=== PATIENT | male | born 1990 | race Caucasian/White ===

== ENCOUNTER 2023-09-17 17:43 | Emergency (ER) | payer OTHER, SELFPAY ==
--- NOTE | ~2023-09-17 | CT_ITS ---
EXAMINATION: CT abdomen pelvis w con DATE: 09/17/2023 19:16 INDICATION: Right lower quadrant abdominal pain. TECHNIQUE: Computed tomography (CT) of the abdomen and pelvis was performed with 100 mL Omnipaque 350 intravenous contrast. Automated exposure control and iterative reconstruction technique were employe d. The dose-length product was 504.05 mGy-cm. COMPARISON: None. FINDINGS: The visualized portions of the lung bases demonstrate mild atelectasis. No pleural effusion . The heart size is normal. No pericardial effusion. There is a 6 mm cyst in the liver. The gallbladd er, spleen, pancreas, adrenal glands, and left kidney are normal. There is a delayed right-sided cont rast nephrogram. There is mild right hydronephrosis and hydroureter. There is a 2 mm stone at right u reterovesicular junction. There are no dilated loops of bowel. There is a left inguinal hernia contai lanny fat. The appendix is normal. There are no pathologically enlarged lymph nodes. There is no free intraperitoneal fluid. There is mild lumbar spondylosis. IMPRESSION: 1. 2 mm stone at right ureterovesicular junction with mild right hydronephrosis and hydroureter. Reviewed, dictated and finalized at location [facility]
[2023-09-17 17:47] VITALS: BP 137/75; PULSE 69; RESP 20; TEMP 36.6; O2SAT 100
[2023-09-17 18:02] LABS: Basophils Percent Auto 0.5 % (0.2-1.2); Eosinophils Absolute Auto 0.1 K/mm3 (0-0.3); Eosinophils Percent Auto 1.2 % (0-4.4); Hematocrit 43.9 % (42.0-52.0); Hemoglobin 14.8 g/dL (14.0-18.0); Immature Granulocyte Absolute 0.02 K/mm3 (0.00-0.031); Immature Granulocyte Percent A 0.3 % (0-0.5); Lymphocytes Absolute Auto 1.77 K/mm3 (0.9-3.2); Lymphocytes Percent Auto 26.7 % (18.3-44.2); Mean Corpuscular HGB Conc 33.7 g/dl (32-36); Mean Corpuscular Hemoglobin 29.5 pg (26-34); Mean Corpuscular Volume 87.5 fl (80-100); Mean Platelet Volume 9.8 fl (7.4-10.4); Monocytes Absolute Auto 0.6 K/mm3 (0.1-0.6); Monocytes Percent Auto 9.2 % (2.6-8.5); Neutrophils Absolute Auto 4.1 K/mm3 (1.3-6.7); Neutrophils Percent Auto 62.1 % (45.5-73.1); Platelet Count Result 300 k/mm3 (150-375); Red Blood Count 5.02 M/mm3 (4.6-6.20); Red Cell Distribution Width 12.8 % (11.5-14.5); White Blood Count 6.6 K/mm3 (4.5-10.0)
[2023-09-17 18:10] LABS: Alanine Aminotransferase 29 U/L (6-50); Albumin Level 4.5 g/dL (3.5-5.1); Alkaline Phosphatase 83 U/L (38-126); Anion Gap 12 mmol/L (8-16); Aspartate Amino Transferase 28 U/L (17-59); Bilirubin,Total 0.9 mg/dL (0.2-1.3); Blood Urea Nitrogen 15 mg/dL (9-20); Calcium 9.7 mg/dL (8.4-10.2); Carbon Dioxide 25 mmol/L (22-30); Chloride 101 mmol/L (98-107); Estimated CRCL calculation 79 ml/min; Estimated Glomerular Filt Rate > 60; Glucose 106 mg/dL (65-110); Lipase 56 U/L (23-300); Potassium 3.8 mmol/L (3.4-5.0); Sodium 138 mmol/L (137-145)
--- NOTE | 2023-09-17 18:11 | ED.GENADULT ---
HPI - General Adult General Chief complaint: Abdominal Pain Stated complaint: right sided abd pain Time Seen by Provider: 09/17/23 18:11 Focused HPI: This is a 32-year-old male who presents to the ED with chief complaint of severe right lower quadrant pain began around 3:00 pm. today. Reports there is some pain in the right flank as well. endorses nausea. denies Vomiting, chest pain, shortness of breath, urinary symptoms. GENERAL: Pacing around the room in pain. HEAD: Normocephalic, atraumatic. CHEST: Clear to auscultation. No respiratory distress. HEART: Regular rate and rhythm. NEURO: Alert and oriented x3. Patient screened in triage and initial orders placed. Additional care and disposition to be based upon diagnostic testing and treatment. Related Data Home Medications Medication Instructions Recorded Confirmed trazodone 100 mg tablet mg 09/17/23 Allergies Allergy/AdvReac Type Severity Reaction Status Date / Time No Known Allergies Allergy Verified 09/17/23 18:15 Course Vital Signs Vital signs: Vital Signs Temperature 97.8 F 09/17/23 17:47 Pulse Rate 69 09/17/23 17:47 Respiratory Rate 20 09/17/23 17:47 Blood Pressure 137/75 09/17/23 17:47 Pulse Oximetry 100 09/17/23 17:47 Temperature 97.8 F 09/17/23 17:47 Pulse Rate 65 09/17/23 22:50 Respiratory Rate 14 09/17/23 22:50 Blood Pressure 122/66 09/17/23 22:50 Pulse Oximetry 100 09/17/23 22:50 Medical Decision Making MDM Narrative Medical decision making narrative: Medical screening exam performed by advanced practice provider in triage. Patient's care was continued by another provider in the emergency department. a separate note was written in the EMR for this visit. Vital Signs Vital Signs: Vital Signs Temperature 97.8 F 09/17/23 17:47 Pulse Rate 69 09/17/23 17:47 Respiratory Rate 20 09/17/23 17:47 Blood Pressure 137/75 09/17/23 17:47 Pulse Oximetry 100 09/17/23 17:47 Temperature 97.8 F 09/17/23 17:47 Pulse Rate 65 09/17/23 22:50 Respiratory Rate 14 09/17/23 22:50 Blood Pressure 122/66 01/16/24 22:50 Pulse Oximetry 100 09/17/23 22:50 Lab Data 09/17/23 17:53 09/17/23 17:53 Labs: Lab Results 09/17/23 09/17/23 Range/Units 17:53 21:05 WBC 6.6 (4.5-10.0) K/mm3 RBC 5.02 (4.6-6.20) M/mm3 Hgb 14.8 (14.0-18.0) g/dL Hct 43.9 (42.0-52.0) % MCV 87.5 (80-100) fl MCH 29.5 (26-34) pg MCHC 33.7 (32-36) g/dl RDW 12.8 (11.5-14.5) % Plt Count 300 (150-375) k/mm3 MPV 9.8 (7.4-10.4) fl Immature Gran % (Auto) 0.3 (0-0.5) % Neut % (Auto) 62.1 (45.5-73.1) % Lymph % (Auto) 26.7 (18.3-44.2) % [place] % (Auto) 9.2 H (2.6-8.5) % Eos % (Auto) 1.2 (0-4.4) % Baso % (Auto) 0.5 (0.2-1.2) % Lymph # (Auto) 1.77 (0.9-3.2) K/mm3 [place] # (Auto) 0.6 (0.1-0.6) K/mm3 Eos # (Auto) 0.1 (0-0.3) K/mm3 Baso # (Auto) 0.0 (0.0-0.1) K/mm3 Abs Immat Gran (auto) 0.02 (0.00-0.031) K/mm3 Absolute Neuts (auto) 4.1 (1.3-6.7) K/mm3 Absolute Nucleated RBC 0.0 (0.0-0.012) K/mm3 Nucleated RBC % 0.0 (0.0-0.2) % Sodium 138 (137-145) mmol/L Potassium 3.8 (3.4-5.0) mmol/L Chloride 101 (98-107) mmol/L Carbon Dioxide 25 (22-30) mmol/L Anion Gap 12 (8-16) mmol/L BUN 15 (9-20) mg/dL Creatinine 1.20 (0.7-1.3) mg/dL Estim Creat Clear Calc 79 ml/min Estimated GFR > 60 (59 - ) Glucose 106 (65-110) mg/dL Calcium 9.7 (8.4-10.2) mg/dL Total Bilirubin 0.9 (0.2-1.3) mg/dL AST 28 (17-59) U/L ALT 29 (6-50) U/L Alkaline Phosphatase 83 (38-126) U/L Total Protein 7.0 (6.3-8.2) g/dL Albumin 4.5 (3.5-5.1) g/dL Lipase 56 (23-300) U/L Urine Color Yellow (Yellow) Urine Appearance Clear (Clear) Urine pH 5.0 (5.0-9.0) Ur Specific [place] 1.077 H (1.001-1.035) Urine Protein Negative (Negative) mg/dL Ur
[2023-09-17] MEDS: ONDANSETRON INJ 4 MG/2 ML VIAL IV PUSH ×2 (18:16→18:57)
[2023-09-17] MEDS: SODIUM CHLORIDE 0.9% IV 1,000 ML 999 ML IV CONT ×2 (18:57→20:31)
[2023-09-17] MEDS: HYDROmorphone HCL INJ (*CRX) 1 MG/ML SYR IV PUSH (18:58)
--- NOTE | 2023-09-17 19:30 | ED.ABDPAIN ---
HPI - Abdominal Pain General Chief Complaint: Abdominal Pain Stated Complaint: right sided abd pain Time Seen by Provider: 09/17/23 18:11 Source: patient Mode of arrival: ambulatory Limitations: no limitations History of Present Illness HPI narrative: Patient is a 32-year-old male who presents ED with report of right lower quadrant abdominal pain. Patient reports pain began suddenly around 3:00 p.m. today and has been constant and persistent since then. States pain has been mostly in right lower abdomen, does report some mild pain in his right lower back. Reports nausea and vomiting. Denies diarrhea, constipation, fevers. States he has not urinated much today, but dysuria or hematuria. Denies previous history of kidney stones. Related Data Home Medications Medication Instructions Recorded Confirmed trazodone 100 mg tablet mg 09/17/23 Allergies Allergy/AdvReac Type Severity Reaction Status Date / Time No Known Allergies Allergy Verified 09/17/23 18:15 Review of Systems Review of Systems: CONSTITUTIONAL: Denies fever, chills, or sweats. GASTROINTESTINAL: See HPI. GENITOURINARY: See HPI. MUSCULOSKELETAL: See HPI. All systems reviewed & are unremarkable except as noted in HPI and below Exam Narrative: GENERAL: Uncomfortable appearing, in mild acute distress due to pain. Pacing around ED room. HEAD: Normocephalic, atraumatic. RESPIRATORY: Airway patent, respirations nonlabored. Clear to auscultation bilaterally, no rales, rhonchi, wheezing. CARDIOVASCULAR: Regular rate and rhythm ABDOMINAL: Soft, tenderness in right lower quadrant, nondistended. Normoactive BS. Positive CVA tenderness on right. MUSCULOSKELETAL: Moves all extremities. No gross deformities. SKIN: Warm, dry, normal color. NEURO: A&O X3. Speech clear. Cranial nerves II-XII grossly intact. Steady gait. No ataxic movements. PSYCHIATRIC: Anxious. Normal interaction. Course Vital Signs Vital signs: Vital Signs Temperature 97.8 F 09/17/23 17:47 Pulse Rate 69 09/17/23 17:47 Respiratory Rate 20 09/17/23 17:47 Blood Pressure 137/75 09/17/23 17:47 Pulse Oximetry 100 09/17/23 17:47 Temperature 97.8 F 09/17/23 17:47 Pulse Rate 65 09/17/23 22:50 Respiratory Rate 14 09/17/23 22:50 Blood Pressure 122/66 09/17/23 22:50 Pulse Oximetry 100 09/17/23 22:50 MDM - Abdominal Pain MDM Narrative Medical decision making narrative: Patient presented to ED with sudden onset of RLQ abdominal pain onset today. Associated with nausea and vomiting. Patient very uncomfortable appearing, pacing around ED room. Vital stable. Laboratory studies unremarkable. Creatinine 1.2, no records to compare to. UA with ketones, no evidence for infection. CT abdomen pelvis obtained showing 2 mm right UVJ stone. Consistent with exam and patient presentation. Patient updated on lab and imaging findings. He is feeling better with supportive therapy. Able to tolerate p.o. intake. Pain significantly improved. Feels comfortable with discharge home. Discussed further management of stone, will send home with pain and nausea medicine, in addition to Flomax. Advised follow-up with urology for further evaluation, given strict return precautions. Patient agreeable with plan. Discharged in stable condition. Medical Records Attestation: I reviewed the patient's medical records. Lab Data Attestation: I reviewed the patient's lab results. 09/17/23 17:53 09/17/23 17:53 Labs: Lab Results 09/17/23 09/17/23 Range/Units 17:53 21:05 WBC 6.6 (4.5-10.0) K/mm3 RBC 5.02 (4.6-6.20) M/mm3 Hgb 14.8 (14.0-18.0) g/dL Hct 43.9 (42.0-52.0) % MCV 87.5 (80-100) fl MCH 29.5 (26-34) pg MCHC 33.7 (32-36) g/dl RDW 12.8 (11.5-14.5) % Plt Count 300 (150-375) k/mm3 MPV 9.8 (7.4-10.4) fl Immature Gran % (Auto) 0.3 (0-0.5) % Neut % (Auto) 62.1 (45.5-73.1) % Lymph % (Auto) 26
[2023-09-17] MEDS: KETOROLAC 30 MG/ML VIAL (*BKC) IV PUSH (20:30)
[2023-09-17] MEDS: METOCLOPRAMIDE HCL INJ 10 MG/2 ML VIAL IV PUSH (21:00)
[2023-09-17] MEDS: diphenhydrAMINE HCl INJ 50 MG/ML VIAL 25 MG IV PUSH (21:00)
[2023-09-17 21:51] LABS: Appearance Urine Clear (Clear); Bacteria Urine None Seen /hpf; Bilirubin Urine Negative (Negative); Blood Urine Trace (Negative); Color Urine Yellow (Yellow); Glucose Urine UA Negative (Negative); Ketones Urine 3+ mg/dL (Negative); Leukocyte Esterase Ur Negative LEU/UL (Negative); Nitrate Urine Negative (Negative); Non Pathogenic Casts 0-2; Protein Urine Negative (Negative); RBC Urine 0-2 /hpf (0-2); Squamous Epithelial Cell Urine None seen /hpf (Few); Urobilinogen Urine 0.2 mg/dL (<2.0); WBC Urine 0-5 /hpf
[2023-09-17 21:53] LABS: Add Urine Microscopic? YES; Specific Grav Ur 1.077 (1.001-1.035)
[2023-09-17 22:17] VITALS: BP 125/73; PULSE 69; RESP 15; O2SAT 100
[2023-09-17] MEDS: TAMSULOSIN HCL 0.4 MG CAPSULE PO (22:42)
[2023-09-17 22:50] VITALS: BP 122/66; PULSE 65; RESP 14; O2SAT 100
== END 2023-09-17 23:15 | disposition home or self-care (01) ==
PROVIDERS: Emergency Medicine; Emergency Provider Physician Assistant
DX: N13.2 Hydronephrosis with renal and ureteral calculous obstruction (principal)
CPT/HCPCS: 36415; 74177; 80053; 81001; 83690; 85025; 96361; 96374; 96375; 96376; 99284; A9270; J1170; J1200; J1885; J2405; J2765; J7030; Q9967

== ENCOUNTER 2024-07-22 10:20 | Outpatient (CLI) | payer OTHER, SELFPAY ==
--- NOTE | 2024-07-22 11:15 | NEURO_ITS ---
Impression: # Complains of numbness of right hand. Non-diabetic. # Not enough to make the diagnosis of Carpal Tunnel Syndrome at this time. # No ulnar neuropathy. # Normal needle/EMG exam including proximal muscles. # Clinical correlation recommended. Nerve Conduction Studies Anti Sensory Summary Table Stim Site NR Peak (ms) P-T Amp (?V) Site1 Site2 Delta-P (ms) Dist (cm) [place] (m/s) Right Median Anti Sensory (2-3nd Digit) Wrist 2.8 63.5 Wrist 2-3nd Digit 2.8 14.0 50 Wrist 2.9 63.4 Wrist 2-3nd Digit 2.8 14.0 50 Right Radial Anti Sensory (Base 1st Digit) Wrist 1.8 27.7 Wrist Base 1st Digit 1.8 0.0 Right Ulnar Anti Sensory (5th Digit) Wrist 2.0 74.5 Wrist 5th Digit 2.0 14.0 70 Motor Summary Table Stim Site NR Onset (ms) O-P Amp (mV) Site1 Site2 Delta-0 (ms) Dist (cm) [place] (m/s) Right Median Motor (Abd Poll Brev) Wrist 3.7 4.3 Elbow Wrist 4.9 30.0 61 Elbow 8.6 4.5 ELB/ADM Wrist 0.8 0.0 ELB/ADM 2.9 5.0 Right Ulnar Motor (Abd Dig Minimi) Wrist 2.0 8.2 A Elbow Wrist 4.6 29.0 63 A Elbow 6.6 8.8 F Wave Studies NR F-Lat (ms) L-R F-Lat (ms) Right Median (Mrkrs) (Abd Poll Brev) 27.27 Right Ulnar (Mrkrs) (Abd Dig Min) 26.41 EMG Side Muscle Nerve Root Ins Act Fibs Amp Dur Recrt Comment Right 1stDorInt Ulnar C8-T1 Nml Nml Nml Nml Nml Right Ext Indicis Radial (Post Int) C7-8 Nml Nml Nml Nml Nml Right Ext Digitorum Radial (Post Int) C7-8 Nml Nml Nml Nml Nml Right BrachioRad Radial C5-6 Nml Nml Nml Nml Nml Right PronatorTeres Median C6-7 Nml Nml Nml Nml Nml Right Abd Poll Brev Median C8-T1 Nml Nml Nml Nml Nml Right ABD Dig Min Ulnar C8-T1 Nml Nml Nml Nml Nml Right Biceps Musculocut C5-6 Nml Nml Nml Nml Nml Right Triceps Radial C6-7-8 Nml Nml Nml Nml Nml Right Deltoid Axillary C5-6 Nml Nml Nml Nml Nml MTDD
== END 2024-07-22 10:21 | disposition home or self-care (01) ==
PROVIDERS: Visit Provider Physician Assistant
DX: G56.01 Carpal tunnel syndrome, right upper limb (principal)
CPT/HCPCS: 95886; 95909